=== PATIENT | female | born 1990 | race Hispanic/Latino ===

== ENCOUNTER 2016-12-06 18:52 | Emergency (ER) | payer OTHER, SELFPAY ==
[~2016-12-06 18:52] MED LIST: ISOVUE-370 76%-LOCM 1 ML ONE
[2016-12-06 19:35] LABS: Bilirubin Negative (Negative); Blood, Urine Negative (Negative); Glucose, Urine (Dipstick) Negative (Negative); Ketone, Urine Negative (Negative); Nitrite Negative (Negative); Protein, Urine (Dipstick) Negative (Neg-Trace)
[2016-12-06 19:39] LABS: Bacteria/HPF None Seen HPF (None Seen); Hyaline Casts/LPF 0-3 HYALINE CAST LPF (0-3 Hyaline); Squamous Epithelial 0-3 HPF (0-3); WBC/HPF 0-3 HPF (0-3)
[2016-12-06] MEDS ORDERED: Ondansetron HCl/PF 4 MG/2 ML Vial ONE (21:31)
[2016-12-06] MEDS ORDERED: Morphine 2 MG/ML SYRINGE ONE (21:31)
--- NOTE | 2016-12-06 22:30 | ULT ---
PELVIC ULTTRASOUND: Technique: Grayscale and color doppler with spectral analysis imaging was performed of the pelvis wi th transabdominal and endovaginal imaging performed. Indication: Left lower quadrant/pelvic pain with nausea and vomiting for four days. FINDINGS: There is prominence of the endometrium that is approximately 11 mm in thickness within normal limits in size for premenopausal patient. No focal uterine lesion is seen. Within the left adnexa there is a focal region of heterogenous solid appearing echo texture. There is scant flow within this region , with adnexal mass measuring approximately 3 cm in maximum diameter. Doppler assessment reveals flow to each ovary. There is nonspecific mild free pelvic fluid. IMPRESSION: 1. Left adnexal mass 3 cm in size with a solid appearing echotexture and scant areas of flow. This c ould relate to a region of heterogeneity within the ovarian parenchyma with adjacent ovarian follicl es; however, an underlying mass cannot be excluded and therefore recommend follow up with pre and po st contrast pelvic MRI to more definitely characterize. 2. Mild free pelvis fluid. Code T POS: [facility]
[2016-12-06 22:41] LABS: #Basophils 0.1 thou/uL (0.0-0.2); #Eosinphils 0.2 thou/uL (0.0-0.7); #Monocytes 0.4 thou/uL (0.11-0.59); #Neutrophils 4.1 thou/uL (1.40-6.50); %Basophils 0.7 % (0.0-1.0); %Monocytes 5.5 % (0.0-10.0); Hematocrit 36.5 % (36.0-47.0); Mean Platelet Volume 6.4 fL (7.4-10.4); Red Blood Cell (RBC) Count 4.57 mill/uL (4.20-5.40); White Blood Cell (WBC) Count 7.8 thou/uL (4.8-10.8)
[2016-12-06 23:02] LABS: Anion Gap 13 mmol/L (10-20); BUN (Urea Nitrogen) 7 mg/dL (7.0-18.7); Calc. Creatinine Clearance 0 mL/min (70-130); Calcium 9.2 mg/dL (7.8-10.44); Carbon Dioxide 22 mmol/L (22-29); Chloride 106 mmol/L (98-107); Estimated GFR-MDRD Greater than 90; Lipase 36 U/L (8-78)
[2016-12-06] MEDS ORDERED: Ketorolac Tromethamine 30 MG/ML VIAL ONE (23:52)
--- NOTE | 2016-12-07 00:07 | CT ---
CONTRAST ENHANCED CT ABDOMEN AND PELVIS: Date: 12-06-16 Comparison: CT abdomen 10-26-16. FINDINGS: Lung bases are unremarkable. IV contrast was given. Unfortunately, oral contrast was not given. This does decrease the sensitivity for detection of pathology. The liver and spleen are unremarkable. The gallbladder, pancreas, and adrenal glands are unremarkabl e. The kidneys are unremarkable. Normal appendix is visualized. No dilated loops of small bowel is s een. There is a 3.1 x 3.0 cm cyst or cystic lesion in the left ovary which has developed since the previo us comparison CT from approximately 40 days earlier. IMPRESSION: 1. Left ovarian newly developed cyst or cystic lesion. POS: [facility]
== END 2016-12-07 00:35 | disposition home or self-care (01) ==
LOC: ERS 18:52
DX: N83.202 Unspecified ovarian cyst, left side (principal); D50.9 Iron deficiency anemia, unspecified; J45.909 Unspecified asthma, uncomplicated; Z87.891 Personal history of nicotine dependence
CPT/HCPCS: 36415; 74177; 76856; 80048; 81003; 81015; 81025; 83690; 85025; 96374; 96375; J1885; J2270; J2405

== ENCOUNTER 2017-01-03 13:38 | Emergency (ER) | payer SELFPAY ==
[2017-01-03 14:02] LABS: #Basophils 0.1 thou/uL (0.0-0.2); #Eosinphils 0.1 thou/uL (0.0-0.7); #Monocytes 0.2 thou/uL (0.11-0.59); #Neutrophils 3.4 thou/uL (1.40-6.50); %Eosinophils 1.5 % (0.0-10.0); %Lymphocytes 34.8 % (21.0-51.0); %Monocytes 3.8 % (0.0-10.0); Hematocrit 38.6 % (36.0-47.0); Mean Platelet Volume 6.1 fL (7.4-10.4); Red Blood Cell (RBC) Count 4.68 mill/uL (4.20-5.40); White Blood Cell (WBC) Count 5.7 thou/uL (4.8-10.8)
[2017-01-03 14:21] LABS: Bilirubin Negative (Negative); Blood, Urine Negative (Negative); Glucose, Urine (Dipstick) Negative (Negative); Ketone, Urine Negative (Negative); Nitrite Negative (Negative); Protein, Urine (Dipstick) Negative (Neg-Trace)
[2017-01-03 14:25] LABS: ALT (SGPT) 14 U/L (8-55); AST (SGOT) 17 U/L (5-34); Alkaline Phosphatase 66 U/L (40-150); Anion Gap 13 mmol/L (10-20); BUN (Urea Nitrogen) 8 mg/dL (7.0-18.7); Bilirubin, Total 0.3 mg/dL (0.2-1.2); Calc. Creatinine Clearance 0 mL/min (70-130); Calcium 9.7 mg/dL (7.8-10.44); Carbon Dioxide 24 mmol/L (22-29); Chloride 103 mmol/L (98-107); Estimated GFR-MDRD Greater than 90; Globulin 3.5 g/dL (2.4-3.5); Protein, Total 8.3 g/dL (6.0-8.3)
[2017-01-03] MEDS ORDERED: Morphine 4 MG/ML VIAL ONE (14:38)
[2017-01-03] MEDS ORDERED: Ketorolac Tromethamine 30 MG/ML VIAL ONE (14:38)
--- NOTE | 2017-01-03 16:05 | ULT ---
PELVIC ULTRASOUND: Date: 01/03/17 HISTORY: Left-sided pelvic pain. History of left ovarian cyst. COMPARISON: 12/06/16. FINDINGS: Uterus demonstrates a normal sonographic appearance with slight nonspecific heterogeneity o9f the terry metrium. No myometrial mass is present. The uterus measures 9.0 cm x 3.7 cm x 4.9 cm. The endometrial stripe measures 0.7 cm in thickness, which is within normal limits in a normal menstruating female p atient. The ovaries demonstrate a normal sonographic appearance bilaterally with peripheral follicles present in each ovary. The right ovary measures 3.9 cm x 2.5 cm x 2.3 cm. The left ovary measures 4.0 cm x 1 .9 cm 2.0 cm. Doppler evaluation of each ovary with spectral analysis and color flow evaluation demon strates venous flow bilaterally with arterial flow documented in the left ovary. There is also sugges tion of arterial flow within the right ovary. No free fluid is seen in the cul-de-sac. IMPRESSION: 1. Normal appearing uterus and bilateral ovaries. 2. Resolution of the left adnexal mass-like structure which may have been related to nonspecific are a of heterogeneity or possibly related to hemorrhagic cyst. This is not visualized on today's examina tion, and the left ovary has a more normal appearance. POS: [facility]
[2017-01-03] MEDS ORDERED: Acetaminophen/Codeine 30-300mg Tablet ONE (16:18)
== END 2017-01-03 17:04 | disposition home or self-care (01) ==
LOC: ERS 13:38
DX: R10.30 Lower abdominal pain, unspecified (principal); D50.9 Iron deficiency anemia, unspecified; J45.909 Unspecified asthma, uncomplicated; Z87.891 Personal history of nicotine dependence
CPT/HCPCS: 36415; 76856; 80053; 81003; 81025; 85025; 96374; 96375; J1885; J2270

== ENCOUNTER 2017-01-31 07:59 | Emergency (ER) | payer OTHER, SELFPAY ==
[2017-01-31] MEDS ORDERED: Ondansetron HCl/PF 4 MG/2 ML Vial ONE (08:55)
== END 2017-01-31 11:45 | disposition home or self-care (01) ==
LOC: ERS 07:59
DX: J10.1 Influenza due to other identified influenza virus with other respiratory manifestations (principal); D50.0 Iron deficiency anemia secondary to blood loss (chronic); J45.909 Unspecified asthma, uncomplicated; Z87.891 Personal history of nicotine dependence
CPT/HCPCS: 96361; 96374; J2405

== ENCOUNTER 2017-03-16 15:28 | Emergency (ER) | payer OTHER | END 2017-03-16 16:31 | disposition left against medical advice (07) | LOC: ERS 15:28 | DX: Z53.21 Procedure and treatment not carried out due to patient leaving prior to being seen by health care provider (principal) ==

== ENCOUNTER 2021-07-27 09:05 | Emergency (ER) | payer OTHER, SELFPAY ==
[~2021-07-27 09:05] MED LIST changes: -ISOVUE-370 76%-LOCM 1 ML ONE; +Iopamidol-370 76% 500 ML 1 ML ONE
[2021-07-27 09:33] LABS: Bacteria/HPF None Seen HPF (None Seen); Bilirubin Negative (Negative); Blood, Urine Negative (Negative); Clarity Clear (Clear); Glucose, Urine (Dipstick) Normal (Negative); Ketone, Urine Negative (Negative); Leukocyte 250 Leu/uL (Negative); Nitrite Negative (Negative); Protein, Urine (Dipstick) Negative (Neg-Trace); RBC/HPF 0-3 HPF (0-3); Specific Gravity, Urine 1.017 (1.002-1.036); Urobilinogen Normal mg/dL (Less than 2)
[2021-07-27 09:37] LABS: Pregnancy Test - Urine (BHCG) Negative (Negative); Pregu Control Background? CLEAR/WHITE (CLR/WHITE); Pregu Control Bar Appear? YES (CONTROL BAR); Specific Gravity 1.017 (1.002-1.036)
[2021-07-27 09:47] LABS: #Basophils 0.1 thou/uL (0.0-0.2); #Eosinphils 0.4 thou/uL (0.0-0.7); #Lymphocytes 1.6 thou/uL (1.20-3.40); #Monocytes 0.3 thou/uL (0.11-0.59); #Neutrophils 3.9 thou/uL (1.40-6.50); %Basophils 1.1 % (0.0-1.0); %Eosinophils 6.1 % (0.0-10.0); %Lymphocytes 25.6 % (21.0-51.0); %Monocytes 4.7 % (0.0-10.0); %Neutrophils 62.6 % (42.0-75.0); Hemoglobin 13.1 g/dL (12.0-16.0); Mean Corpuscular HGB CONC 33.5 g/dL (32.0-36.0); Mean Corpuscular Hemoglobin 30.5 pg (27.0-31.0); Mean Corpuscular Volume 91.2 fL (78.0-98.0); Mean Platelet Volume 5.9 fL (7.4-10.4); Platelet Count 362 thou/uL (130-400); RBC Distribution Width 11.6 % (11.5-14.5); Red Blood Cell (RBC) Count 4.29 mill/uL (4.20-5.40); White Blood Cell (WBC) Count 6.2 thou/uL (4.8-10.8)
[2021-07-27 10:09] LABS: ALT (SGPT) 8 U/L (8-55); AST (SGOT) 8 U/L (5-34); Albumin 4.2 g/dL (3.5-5.0); Alkaline Phosphatase 56 U/L (40-110); Anion Gap 14 mmol/L (10-20); BUN (Urea Nitrogen) 6 mg/dL (7.0-18.7); Bilirubin, Total 0.4 mg/dL (0.2-1.2); Calc. Creatinine Clearance 0 mL/min (70-130); Calcium 9.5 mg/dL (7.8-10.44); Carbon Dioxide 18 mmol/L (22-29); Chloride 109 mmol/L (98-107); Globulin 3.5 g/dL (2.4-3.5); Glucose 116 mg/dL (70-105); Potassium 4.1 mmol/L (3.5-5.1); Protein, Total 7.7 g/dL (6.0-8.3); Sodium 137 mmol/L (136-145)
[2021-07-27] MEDS ORDERED: Ondansetron PF 4 MG/2 ML Vial ONE (12:32)
[2021-07-27] MEDS ORDERED: Dicyclomine 20 MG TAB ONE (12:57)
[2021-07-27] MEDS ORDERED: cefTRIAXone\\ROCEPHIN 1 GM VIAL ONE (13:40)
[2021-07-28 11:49] LABS: Chlamydia by PCR Not Detected (NotDetected); GC by PCR Not Detected (NotDetected)
== END 2021-07-27 15:15 | disposition home or self-care (01) ==
LOC: ERS 09:05
DX: N73.9 Female pelvic inflammatory disease, unspecified (principal); J45.909 Unspecified asthma, uncomplicated; F17.290 Nicotine dependence, other tobacco product, uncomplicated
CPT/HCPCS: 36415; 74177; 76856; 80053; 81003; 81015; 81025; 85025; 87480; 87491; 87510; 87591; 87660; 93976; 96365; J0696; J2405; Q9967